=== PATIENT | female | born 1990 | race African-American/Black ===

== ENCOUNTER 2021-01-09 09:12 | Emergency (ER) | payer MEDICAID, OTHER ==
[~2021-01-09] VITALS: Ht 165.1 cm; Wt 100.7 kg
[2021-01-09 09:43] VITALS: BP 139/94
== END 2021-01-09 10:40 | disposition home or self-care (01) ==
LOC: ER 09:12
DX: S83.92XA Sprain of unspecified site of left knee, initial encounter (principal); X58.XXXA Exposure to other specified factors, initial encounter; Y93.89 Activity, other specified; Y92.89 Other specified places as the place of occurrence of the external cause; Y99.8 Other external cause status
CPT/HCPCS: 73562

== ENCOUNTER 2021-03-29 17:25 | Emergency (ER) | payer MEDICAID ==
[~2021-03-29] VITALS: Ht 165.1 cm; Wt 98.9 kg
[2021-03-29 18:22] VITALS: BP 128/74
[2021-03-29] MEDS ORDERED: methylPREDNISolone SOD SUCC 125 MG/2 ML VL IM ONE (20:00)
== END 2021-03-29 20:13 | disposition home or self-care (01) ==
LOC: ER 17:25
DX: L25.9 Unspecified contact dermatitis, unspecified cause (principal); I10 Essential (primary) hypertension
CPT/HCPCS: 96372; 99283; J2930

== ENCOUNTER 2021-05-11 12:35 | Emergency (ER) | payer MEDICAID ==
[~2021-05-11] VITALS: Ht 165.1 cm; Wt 96.2 kg
[2021-05-11 14:38] VITALS: BP 115/69
== END 2021-05-11 15:02 | disposition home or self-care (01) ==
LOC: ER 12:35
DX: J03.90 Acute tonsillitis, unspecified (principal); I10 Essential (primary) hypertension

== ENCOUNTER 2021-05-29 11:05 | Emergency (ER) | payer MEDICAID ==
[~2021-05-29] VITALS: Ht 165.1 cm; Wt 96.2 kg
[2021-05-29 11:57] LABS: Urine Bacteria FEW /hpf (None Seen); Urine Blood Negative /uL (Negative); Urine Mucus FEW (None Seen); Urine Specific Gravity 1.036 (1.001-1.035); Urine WBC 20 /hpf (0 - 5)
[2021-05-29 12:38] VITALS: BP 130/89
== END 2021-05-29 13:29 | disposition home or self-care (01) ==
LOC: ER 11:05
DX: S30.814A Abrasion of vagina and vulva, initial encounter (principal); N39.0 Urinary tract infection, site not specified; E11.9 Type 2 diabetes mellitus without complications; X58.XXXA Exposure to other specified factors, initial encounter; Y93.89 Activity, other specified; Y92.89 Other specified places as the place of occurrence of the external cause; Y99.8 Other external cause status
CPT/HCPCS: 81001; 81025

== ENCOUNTER 2021-10-13 11:51 | Emergency (ER) | payer MEDICAID ==
[~2021-10-13] VITALS: Ht 165.1 cm; Wt 96.6 kg
[2021-10-13 13:03] VITALS: BP 147/89
[2021-10-13] MEDS ORDERED: PRED20TA2 PO (14:03)
[2021-10-13] MEDS ORDERED: AMOX-277 PO (14:03)
== END 2021-10-13 14:16 | disposition home or self-care (01) ==
LOC: ER 11:51
DX: J06.9 Acute upper respiratory infection, unspecified (principal); I11.0 Hypertensive heart disease with heart failure; I50.9 Heart failure, unspecified; Z20.822 Contact with and (suspected) exposure to COVID-19
CPT/HCPCS: 36415; 71045; 87426

== ENCOUNTER 2022-01-18 09:43 | Emergency (ER) | payer MEDICAID ==
[~2022-01-18] VITALS: Ht 167.6 cm; Wt 90.7 kg
[~2022-01-18 09:43] MED LIST: AMOX-277 PO; PRED20TA2 PO
[2022-01-18 10:13] LABS: Urine Bacteria FEW /hpf (None Seen); Urine Blood Negative /uL (Negative); Urine Specific Gravity 1.021 (1.001-1.035); Urine WBC 1 /hpf (0 - 5)
[2022-01-18] MEDS ORDERED: cefTRIAXone SOD 1,000 MG VL IM ONE (10:45)
[2022-01-18 11:07] VITALS: BP 111/73
[2022-01-18] MEDS ORDERED: NITR-87 PO (11:36)
== END 2022-01-18 11:47 | disposition home or self-care (01) ==
LOC: ER 09:43
DX: N39.0 Urinary tract infection, site not specified (principal); F41.9 Anxiety disorder, unspecified; I11.0 Hypertensive heart disease with heart failure; I50.9 Heart failure, unspecified; Z95.0 Presence of cardiac pacemaker; Z79.2 Long term (current) use of antibiotics; Z79.899 Other long term (current) drug therapy
CPT/HCPCS: 81001; 96372; 99283; J0696

== ENCOUNTER 2022-02-24 00:43 | Emergency (ER) | payer MEDICAID ==
[~2022-02-24] VITALS: Ht 165.1 cm; Wt 104.3 kg
[2022-02-24 00:43] VITALS: BP 119/69
[~2022-02-24 00:43] MED LIST changes: +NITR-87 PO
[2022-02-24] MEDS ORDERED: ASPirin 81 mg TAB PO ONE (01:30)
== END 2022-02-24 01:46 | disposition left against medical advice (07) ==
LOC: ER 00:43
DX: R06.02 Shortness of breath (principal); Z53.21 Procedure and treatment not carried out due to patient leaving prior to being seen by health care provider
CPT/HCPCS: 93005

== ENCOUNTER 2023-07-26 08:59 | Emergency (ER) | payer MEDICAID ==
[~2023-07-26] VITALS: Ht 165.1 cm; Wt 104.8 kg
[~2023-07-26 08:59] MED LIST changes: -AMOX-277 PO; +AMOX875T4 PO
[2023-07-26 09:54] VITALS: BP 123/84; PULSE 111; RESP 18; TEMP 97.7; O2SAT 96
[2023-07-26] MEDS ORDERED: ACET-1080 PO (10:17)
[2023-07-26] MEDS ORDERED: AZIT500T66 PO (10:17)
== END 2023-07-26 10:35 | disposition home or self-care (01) ==
LOC: ER 08:59
DX: J03.90 Acute tonsillitis, unspecified (principal); I10 Essential (primary) hypertension